=== PATIENT | male | born 1950 | race Caucasian/White ===

== ENCOUNTER → 2017-01-24 | Outpatient (CLI) | payer OTHER ==
[~2017-01-24] VITALS: Ht 177.8 cm; Wt 99.8 kg
[~2017-01-24] MED LIST: ASPIRIN; CIPR500T89 PO; COLA100C3 PO; EXCETAB80 PO; LIDOCAINE 2% INJ 100 MG/5 ML SDV (FOR ANES.) As Ordered ONE; NS 1,000 ML IV SCH; OMEP10CASR PO; PERC5TAB6 PO; PROPOFOL 200 MG/20 ML VIAL As Ordered ONE; TUMS750C20 PO; TYLE325T5 PO; aspirin OR; cinnamon OR
--- NOTE | 2017-01-24 09:52 | ROOR ---
Patient Name: Mehdi Silvestre Procedure Date: 01/24/2017 9:48 AM Date of : 1950 Age: 66 Gender: Male Note Status: Finalized Procedure: Colonoscopy Indications: Screening for colorectal malignant neoplasm Providers: Igro CARDOSO MD Referring MD: Courtney CARRASCO MD Requesting Provider: Medicines: Monitored Anesthesia Care Complications: No immediate complications. Procedure: Pre-Anesthesia Assessment: - The heart rate, respiratory rate, oxygen saturations, blood pressure, adequacy of pulmonary ventilation, and response to care were monitored throughout the procedure. The Colonoscope was introduced through the anus and advanced to the cecum, identified by appendiceal orifice and ileocecal valve. The colonoscopy was performed without difficulty. The patient tolerated the procedure well. The quality of the bowel preparation was good. Findings: The perianal and digital rectal examinations were normal. (Exam: Complete, Prep: Good or Excellent.) Multiple medium-mouthed diverticula were found in the sigmoid colon and descending colon. Small Internal Hemorrhoids. The exam was otherwise without abnormality on direct and retroflexion views. Impression: - (Exam: Complete, Prep: Good or Excellent.) - Moderate diverticulosis in the sigmoid colon and in the descending colon. - Small Internal Hemorrhoids. - The examination of the colon was otherwise normal on direct and retroflexion views. - No specimens collected. Recommendation: - Repeat colonoscopy in 10 years for screening purposes. Igor Cardoso MD Igor CARDOSO MD 01/24/2017 9:51:58 AM This report has been signed electronically. Number of Addenda: 0 Note Initiated On: 01/24/2017 9:48 AM Estimated Blood Loss: Estimated blood loss: none.
[2017-01-24 10:05] VITALS: BP 165/90
== END | disposition home or self-care (01) ==
LOC: M OPP 08:00
PROVIDERS: ATTEND Internal Medicine Gastroenterology
DX: Z12.11 Encounter for screening for malignant neoplasm of colon (principal); K57.30 Diverticulosis of large intestine without perforation or abscess without bleeding; K64.8 Other hemorrhoids; R12 Heartburn; M19.90 Unspecified osteoarthritis, unspecified site; L40.9 Psoriasis, unspecified; Z85.46 Personal history of malignant neoplasm of prostate; Z80.3 Family history of malignant neoplasm of breast; Z80.42 Family history of malignant neoplasm of prostate
CPT/HCPCS: 99156; G0121

== ENCOUNTER → 2017-02-06 | Outpatient (CLI) | payer OTHER ==
[~2017-02-06] MED LIST changes: -LIDOCAINE 2% INJ 100 MG/5 ML SDV (FOR ANES.) As Ordered ONE; -NS 1,000 ML IV SCH; -PROPOFOL 200 MG/20 ML VIAL As Ordered ONE
== END ==
LOC: M SMT 14:14
PROVIDERS: ATTEND Urology
DX: Z08 Encounter for follow-up examination after completed treatment for malignant neoplasm (principal); Z85.46 Personal history of malignant neoplasm of prostate

== ENCOUNTER → 2017-07-12 | Outpatient (REF) | payer OTHER ==
[~2017-07-12] MED LIST changes: +CIPR-249 PO; -CIPR500T89 PO; -COLA100C3 PO; +COLA100C5 PO; +PERC5TAB12 PO; -PERC5TAB6 PO
[2017-07-12 22:36] LABS: BANDS 3 % (< 11)
[2017-07-12 22:38] LABS: PLATELET CLUMPS SMALL AMT
== END ==
LOC: M LAB REF 11:57
PROVIDERS: ATTEND Nurse Practitioner Family
DX: R11.2 Nausea with vomiting, unspecified (principal); D72.829 Elevated white blood cell count, unspecified

== ENCOUNTER → 2018-03-22 | Outpatient (REF) | payer OTHER ==
[2018-03-22 17:22] LABS: BACTERIA, URINE AUTO NEGATIVE (NEGATIVE); MUCUS, URINE SMALL (NEGATIVE); RBC, URINE AUTO 12 /HPF (0-3); SQUAMOUS EPITHELIAL CELL UR AU 0 /HPF (0-6); WBC, URINE AUTO 5 /HPF (0-3)
[2018-03-22 17:25] LABS: LIPASE 68 U/L (73-393)
[2018-03-22 17:25] LABS: AMYLASE 26 U/L (25-115)
[2018-03-22 18:23] LABS: BANDS 3 % (< 11); EOSINOPHILS 5 % (0-5); LYMPHOCYTES 6 % (16-52); MONOCYTES 10 % (0-8); NEUTROPHILS 76 % (35-75); PLATELET ESTIMATE NORMAL (NORMAL)
[2018-03-22 18:26] LABS: TOXIC GRANULATION 1+
== END ==
LOC: M LAB REF 16:59
DX: D72.89 Other specified disorders of white blood cells (principal); R11.2 Nausea with vomiting, unspecified; R31.9 Hematuria, unspecified
CPT/HCPCS: 82150

== ENCOUNTER 2018-03-26 17:29 | Inpatient (IN) | payer OTHER ==
[2018-03-26] MEDS: NS 1,000 ML IV ×2 (18:04→22:37)
[2018-03-26 18:35] LABS: BASO % 0.3 % (0.0-1.0); EOS # 0.3 10^3/uL (0.0-0.50); HEMATOCRIT 39.5 % (42.0-52.0); HEMOGLOBIN 13.6 g/dl (13.5-17.5); IMMATURE GRANULOCYTE % 1.1 % (0-3.0); LYMPH # 0.8 10^3/uL (1.5-4.5); LYMPH % 5.3 % (24.0-44.0); MEAN CORPUSCULAR HEMOGLOBIN 32.1 pg (27.0-33.0); MEAN CORPUSCULAR HGB CONC 34.4 g/dl (32.0-36.5); MEAN CORPUSCULAR VOLUME 93.2 fl (80.0-96.0); MONO # 0.8 10^3/uL (0.0-0.8); MONO % 5.1 % (0.0-5.0); NEUTROPHILS # 13.6 10^3/uL (1.8-7.7); NEUTROPHILS % 86.2 % (36.0-66.0); PLATELET COUNT, AUTOMATED 372 10^3/uL (150-450); RED BLOOD COUNT 4.24 10^6/uL (4.30-6.10); RED CELL DISTRIBUTION WIDTH 12.6 % (11.5-14.5); WHITE BLOOD COUNT 15.7 10^3/uL (4.0-10.0)
[2018-03-26] MEDS: MORPHINE 4 MG/ML 1ML VIAL/SYRINGE (J2270) IV ×2 (18:36→20:36)
[2018-03-26 18:46] LABS: AMORPHOUS SEDIMENT RFX SMALL (NEGATIVE); KETONE, URINE AUTO RFX TRACE mg/dL (NEGATIVE); LEUKOCYTE ESTERASE UR AUTO RFX NEGATIVE (NEGATIVE); NITRITE, URINE AUTO RFX NEGATIVE (NEGATIVE); RBC, URINE AUTO RFX 3 /HPF (0-3); SQUAM EPITHELIAL CELL UR AURFX 0 /HPF (0-6); WBC, URINE AUTO RFX 3 /HPF (0-3)
[2018-03-26 18:49] LABS: SPECIFIC GRAVITY UR AUTO RFX >1.060 (1.002-1.035)
[2018-03-26 19:01] LABS: ALKALINE PHOSPHATASE 142 U/L (45-117); ALT/SGPT 43 U/L (12-78); ANION GAP 7 MEQ/L (8-16); AST/SGOT 29 U/L (7-37); BILIRUBIN,DIRECT 0.3 MG/DL (0.0-0.2); BILIRUBIN,TOTAL 0.7 MG/DL (0.2-1.0); BLOOD UREA NITROGEN 15 MG/DL (7-18); CALCIUM LEVEL 7.9 MG/DL (8.8-10.2); CARBON DIOXIDE LEVEL 30 MEQ/L (21-32); CHLORIDE LEVEL 99 MEQ/L (98-107); CREATININE FOR GFR 0.79 MG/DL (0.70-1.30); GLOMERULAR FILTRATION RATE > 60.0 (>49); GLUCOSE, FASTING 122 MG/DL (70-100); LIPASE 45 U/L (73-393); POTASSIUM SERUM 3.5 MEQ/L (3.5-5.1); SODIUM LEVEL 136 MEQ/L (136-145)
[2018-03-26] MEDS ORDERED: ONDANSETRON 4MG/2ML VIAL (J2405) IV (20:15)
[2018-03-26] MEDS ORDERED: MORPHINE 2 MG/ML 1ML SYRINGE (J2270) IV (20:15)
[2018-03-27 06:23] LABS: BASO # 0.1 10^3/uL (0.0-0.2); BASO % 0.3 % (0.0-1.0); EOS # 0.3 10^3/uL (0.0-0.50); HEMATOCRIT 38.7 % (42.0-52.0); HEMOGLOBIN 13.5 g/dl (13.5-17.5); IMMATURE GRANULOCYTE % 0.9 % (0-3.0); LYMPH # 0.8 10^3/uL (1.5-4.5); LYMPH % 4.5 % (24.0-44.0); MEAN CORPUSCULAR HEMOGLOBIN 32.2 pg (27.0-33.0); MEAN CORPUSCULAR HGB CONC 34.9 g/dl (32.0-36.5); MEAN CORPUSCULAR VOLUME 92.4 fl (80.0-96.0); MONO % 5.7 % (0.0-5.0); NEUTROPHILS # 14.6 10^3/uL (1.8-7.7); NEUTROPHILS % 86.6 % (36.0-66.0); PLATELET COUNT, AUTOMATED 366 10^3/uL (150-450); RED BLOOD COUNT 4.19 10^6/uL (4.30-6.10); RED CELL DISTRIBUTION WIDTH 12.6 % (11.5-14.5); WHITE BLOOD COUNT 16.9 10^3/uL (4.0-10.0)
[2018-03-27 06:33] LABS: INR 1.21; PROTHROMBIN TIME 15.5 SECONDS (12.4-14.5)
[2018-03-27 06:42] LABS: ALBUMIN 1.9 GM/DL (3.2-5.2); ALBUMIN/GLOBULIN RATIO 0.51 (1.00-1.93); ALKALINE PHOSPHATASE 131 U/L (45-117); ALT/SGPT 40 U/L (12-78); ANION GAP 8 MEQ/L (8-16); AST/SGOT 29 U/L (7-37); BILIRUBIN,TOTAL 1.1 MG/DL (0.2-1.0); BLOOD UREA NITROGEN 12 MG/DL (7-18); CALCIUM LEVEL 7.6 MG/DL (8.8-10.2); CARBON DIOXIDE LEVEL 27 MEQ/L (21-32); CHLORIDE LEVEL 101 MEQ/L (98-107); CREATININE FOR GFR 0.69 MG/DL (0.70-1.30); GLOMERULAR FILTRATION RATE > 60.0 (>49); GLUCOSE, FASTING 140 MG/DL (70-100); POTASSIUM SERUM 3.8 MEQ/L (3.5-5.1); SODIUM LEVEL 136 MEQ/L (136-145); TOTAL PROTEIN 5.6 GM/DL (6.4-8.2)
[2018-03-27] MEDS ORDERED: GABAPENTIN 300 MG CAP PO (07:15)
[2018-03-27] MEDS ORDERED: ENOXAPARIN 40 MG/0.4 ML SYRINGE (J1650) SC (09:00)
[2018-03-27] MEDS: NS 1,000 ML IV ×3 (09:36→22:19)
[2018-03-27] MEDS: MORPHINE 4 MG/ML 1ML VIAL/SYRINGE (J2270) IV (09:37)
[2018-03-27] MEDS: SENOKOT S TAB PO ×2 (12:45→21:00)
[2018-03-27] MEDS: MIRALAX *UNIT DOSE* 17GM PACKET PO (12:45)
[2018-03-27 14:50] LABS: ALBUMIN 2.17 GM/DL (3.29-5.55); ALBUMIN % 43.3 % (55.8-66.1); ALPHA-1-GLOBULIN % 11.8 % (2.9-4.9); ALPHA-1-GLOBULINS 0.59 GM/DL (0.17-0.41); ALPHA-2-GLOBULINS 0.79 GM/DL (0.42-0.99); ALPHA-2-GLOBULINS % 15.8 % (7.1-11.8); BETA-1-GLOBULINS 0.34 GM/DL (0.28-0.60); BETA-1-GLOBULINS % 6.8 % (4.7-7.2); BETA-2-GLOBULINS 0.39 GM/DL (0.19-0.55); BETA-2-GLOBULINS % 7.8 % (3.2-6.5); GAMMA GLOBULIN % 14.5 % (11.1-18.8); GAMMA GLOBULINS 0.73 GM/DL (0.65-1.58)
[2018-03-28] MEDS: NS 1,000 ML IV (04:39)
[2018-03-28 06:28] LABS: HEMOGLOBIN 13.1 g/dl (13.5-17.5); MEAN CORPUSCULAR HEMOGLOBIN 31.9 pg (27.0-33.0); MEAN CORPUSCULAR HGB CONC 34.5 g/dl (32.0-36.5); MEAN CORPUSCULAR VOLUME 92.5 fl (80.0-96.0); PLATELET COUNT, AUTOMATED 373 10^3/uL (150-450); RED BLOOD COUNT 4.11 10^6/uL (4.30-6.10); RED CELL DISTRIBUTION WIDTH 12.3 % (11.5-14.5); WHITE BLOOD COUNT 14.8 10^3/uL (4.0-10.0)
[2018-03-28 06:49] LABS: ALBUMIN 1.8 GM/DL (3.2-5.2); ALBUMIN/GLOBULIN RATIO 0.49 (1.00-1.93); ALKALINE PHOSPHATASE 122 U/L (45-117); ALT/SGPT 36 U/L (12-78); ANION GAP 8 MEQ/L (8-16); AST/SGOT 28 U/L (7-37); BILIRUBIN,TOTAL 0.9 MG/DL (0.2-1.0); BLOOD UREA NITROGEN 7 MG/DL (7-18); CALCIUM LEVEL 7.4 MG/DL (8.8-10.2); CARBON DIOXIDE LEVEL 26 MEQ/L (21-32); CHLORIDE LEVEL 105 MEQ/L (98-107); CREATININE FOR GFR 0.75 MG/DL (0.70-1.30); GLOMERULAR FILTRATION RATE > 60.0 (>49); GLUCOSE, FASTING 146 MG/DL (70-100); POTASSIUM SERUM 3.7 MEQ/L (3.5-5.1); SODIUM LEVEL 139 MEQ/L (136-145); TOTAL PROTEIN 5.5 GM/DL (6.4-8.2)
[2018-03-28] MEDS: SENOKOT S TAB PO (09:21)
[2018-03-28] MEDS: MIRALAX *UNIT DOSE* 17GM PACKET PO (09:21)
== END 2018-03-28 12:42 | disposition home or self-care (01) | DRG 440 ==
LOC: M ED 17:29 → M ED INP 20:14 → M MSPAV 22:18
DX: K85.20 Alcohol induced acute pancreatitis without necrosis or infection (principal); F10.10 Alcohol abuse, uncomplicated; Z85.46 Personal history of malignant neoplasm of prostate; Z79.899 Other long term (current) drug therapy; L40.9 Psoriasis, unspecified

== ENCOUNTER → 2018-04-03 | Outpatient (REF) | payer OTHER ==
[2018-04-03 13:07] LABS: AMYLASE 22 U/L (25-115)
[2018-04-03 13:07] LABS: LIPASE 63 U/L (73-393)
== END ==
LOC: M LAB REF 12:06
DX: K86.0 Alcohol-induced chronic pancreatitis (principal); F10.988 Alcohol use, unspecified with other alcohol-induced disorder
CPT/HCPCS: 82150

== ENCOUNTER 2018-04-08 13:59 | Inpatient (IN) | payer OTHER ==
[2018-04-08 13:25] LABS: BASO % 0.2 % (0.0-1.0); EOS % 0.3 % (0.0-3.0); HEMATOCRIT 38.2 % (42.0-52.0); HEMOGLOBIN 13.2 g/dl (13.5-17.5); IMMATURE GRANULOCYTE % 0.5 % (0-3.0); LYMPH # 0.6 10^3/uL (1.5-4.5); LYMPH % 5.2 % (24.0-44.0); MEAN CORPUSCULAR HEMOGLOBIN 31.4 pg (27.0-33.0); MEAN CORPUSCULAR HGB CONC 34.6 g/dl (32.0-36.5); MEAN CORPUSCULAR VOLUME 90.7 fl (80.0-96.0); MONO # 1.4 10^3/uL (0.0-0.8); MONO % 12.6 % (0.0-5.0); NEUTROPHILS # 8.9 10^3/uL (1.8-7.7); NEUTROPHILS % 81.2 % (36.0-66.0); PLATELET COUNT, AUTOMATED 401 10^3/uL (150-450); RED BLOOD COUNT 4.21 10^6/uL (4.30-6.10); RED CELL DISTRIBUTION WIDTH 12.3 % (11.5-14.5); WHITE BLOOD COUNT 10.9 10^3/uL (4.0-10.0)
[2018-04-08] MEDS: NS 1,000 ML IV ×3 (13:32→16:37)
[2018-04-08] MEDS: ACETAMINOPHEN 325 MG TAB PO (13:33)
[2018-04-08 13:43] LABS: LACTIC ACID SEPSIS PROTOCOL 1.6 MMOL/L (0.4-2.0)
[2018-04-08 13:43] LABS: ALBUMIN 2.1 GM/DL (3.2-5.2); ALBUMIN/GLOBULIN RATIO 0.49 (1.00-1.93); ALKALINE PHOSPHATASE 105 U/L (45-117); ALT/SGPT 58 U/L (12-78); AMYLASE 20 U/L (25-115); ANION GAP 9 MEQ/L (8-16); AST/SGOT 49 U/L (7-37); BILIRUBIN,DIRECT 0.4 MG/DL (0.0-0.2); BILIRUBIN,TOTAL 0.9 MG/DL (0.2-1.0); BLOOD UREA NITROGEN 13 MG/DL (7-18); CALCIUM LEVEL 8.3 MG/DL (8.8-10.2); CARBON DIOXIDE LEVEL 29 MEQ/L (21-32); CHLORIDE LEVEL 95 MEQ/L (98-107); GLOMERULAR FILTRATION RATE > 60.0 (>49); GLUCOSE, FASTING 140 MG/DL (70-100); LIPASE 66 U/L (73-393); POTASSIUM SERUM 4.3 MEQ/L (3.5-5.1); SODIUM LEVEL 133 MEQ/L (136-145); TOTAL PROTEIN 6.4 GM/DL (6.4-8.2)
[2018-04-08] MEDS ORDERED: ISOVUE-370 76% 100ML VIAL (Q9967) As Ordered (14:56)
[2018-04-08] MEDS ORDERED: GASTROGRAFIN SOLUTION 30ML (Q9963) As Ordered (14:57)
[2018-04-08] MEDS: GASTROGRAFIN SOLUTION 30ML PO ×2 (15:01→15:34)
[2018-04-08] MEDS: ONDANSETRON 4MG/2ML VIAL (J2405) IV ×2 (15:04→23:50)
[2018-04-08 15:06] LABS: KETONE, URINE AUTO RFX NEGATIVE (NEGATIVE); LEUKOCYTE ESTERASE UR AUTO RFX 1+ (NEGATIVE); MUCUS, URINE RFX SMALL (NEGATIVE); NITRITE, URINE AUTO RFX POSITIVE (NEGATIVE); RBC, URINE AUTO RFX 3 /HPF (0-3); SPECIFIC GRAVITY UR AUTO RFX 1.018 (1.002-1.035); SQUAM EPITHELIAL CELL UR AURFX 0 /HPF (0-6); WBC, URINE AUTO RFX 16 /HPF (0-3)
[2018-04-08] MEDS: MORPHINE 4 MG/ML 1ML VIAL/SYRINGE (J2270) IV ×2 (15:07→23:51)
[2018-04-08] MEDS: CIPROFLOXACIN 400 MG in APPROPRIATE DILUENT 1 EA IV (16:37)
[2018-04-08] MEDS: ACETAMINOPHEN TAB 650MG DOSE (2X325MG) PO (22:44)
[2018-04-08] MEDS: LR 1,000 ML IV (23:49)
[2018-04-08] MEDS: HEPARIN SOD (PORCINE) 5000 UNITS/ML VIAL SC (23:50)
[2018-04-08] MEDS: PANTOPRAZOLE 40MG INJ (PROTONIX) (C9113) IV (23:50)
[2018-04-09] MEDS: IMIPENEM/CILASTATIN 500 MG in D5W MINI-BAG PLUS 100 ML IV ×5 (00:12→20:55)
[2018-04-09 07:15] LABS: HEMATOCRIT 35.8 % (42.0-52.0); HEMOGLOBIN 12.2 g/dl (13.5-17.5); MEAN CORPUSCULAR HEMOGLOBIN 31.1 pg (27.0-33.0); MEAN CORPUSCULAR HGB CONC 34.1 g/dl (32.0-36.5); MEAN CORPUSCULAR VOLUME 91.3 fl (80.0-96.0); PLATELET COUNT, AUTOMATED 335 10^3/uL (150-450); RED BLOOD COUNT 3.92 10^6/uL (4.30-6.10); RED CELL DISTRIBUTION WIDTH 12.6 % (11.5-14.5); WHITE BLOOD COUNT 10.3 10^3/uL (4.0-10.0)
[2018-04-09 07:29] LABS: ADD MANUAL DIFFER YES; DIFF SLIDE NUMBER 85; POSITIVE MORPH POS FLAG
[2018-04-09 07:41] LABS: ALBUMIN 1.7 GM/DL (3.2-5.2); ALBUMIN/GLOBULIN RATIO 0.43 (1.00-1.93); ALKALINE PHOSPHATASE 94 U/L (45-117); ALT/SGPT 50 U/L (12-78); ANION GAP 8 MEQ/L (8-16); AST/SGOT 43 U/L (7-37); BILIRUBIN,TOTAL 1.1 MG/DL (0.2-1.0); BLOOD UREA NITROGEN 12 MG/DL (7-18); CALCIUM LEVEL 8.1 MG/DL (8.8-10.2); CARBON DIOXIDE LEVEL 26 MEQ/L (21-32); CHLORIDE LEVEL 99 MEQ/L (98-107); GLOMERULAR FILTRATION RATE > 60.0 (>49); GLUCOSE, FASTING 122 MG/DL (70-100); POTASSIUM SERUM 4.1 MEQ/L (3.5-5.1); SODIUM LEVEL 133 MEQ/L (136-145); TOTAL PROTEIN 5.7 GM/DL (6.4-8.2)
[2018-04-09 07:54] LABS: ATYPICAL LYMPH 1 % (0-5); BANDS 11 % (< 11); LYMPHOCYTES 8 % (16-52); MONOCYTES 3 % (0-8); NEUTROPHILS 77 % (35-75)
[2018-04-09 07:55] LABS: PLATELET ESTIMATE NORMAL (NORMAL)
[2018-04-09 08:01] LABS: ANISOCYTOSIS 1+
[2018-04-09] MEDS: HEPARIN SOD (PORCINE) 5000 UNITS/ML VIAL SC ×2 (09:59→20:55)
[2018-04-09] MEDS: LR 1,000 ML IV ×3 (10:03→20:54)
[2018-04-09] MEDS: MORPHINE 4 MG/ML 1ML VIAL/SYRINGE (J2270) IV (19:08)
[2018-04-09] MEDS: PANTOPRAZOLE 40MG INJ (PROTONIX) (C9113) IV (20:56)
[2018-04-09] MEDS: ONDANSETRON 4MG/2ML VIAL (J2405) IV (20:56)
[2018-04-10] MEDS: IMIPENEM/CILASTATIN 500 MG in D5W MINI-BAG PLUS 100 ML IV ×4 (02:18→20:55)
[2018-04-10] MEDS: ACETAMINOPHEN TAB 650MG DOSE (2X325MG) PO (05:18)
[2018-04-10] MEDS: LR 1,000 ML IV ×2 (07:45→17:49)
[2018-04-10] MEDS: HEPARIN SOD (PORCINE) 5000 UNITS/ML VIAL SC ×2 (11:00→20:55)
[2018-04-10] MEDS: MORPHINE 4 MG/ML 1ML VIAL/SYRINGE (J2270) IV ×2 (11:00→15:46)
[2018-04-10] MEDS ORDERED: LIDOCAINE 1% MDV 20ML VIAL As Ordered (14:16)
[2018-04-10] MEDS: FAT EMULSION IV 20% 500 ML IV (17:38)
[2018-04-10] MEDS: SODIUM CHLORIDE 0.9% INJ 10 ML SYR IV (17:38)
[2018-04-10] MEDS: AMINO AC/ELECTROLYTE/DEX/CALC 2,000 ML IV (17:38)
[2018-04-10] MEDS: PANTOPRAZOLE 40MG INJ (PROTONIX) (C9113) IV (20:56)
[2018-04-11] MEDS: IMIPENEM/CILASTATIN 500 MG in D5W MINI-BAG PLUS 100 ML IV ×4 (02:29→21:23)
[2018-04-11] MEDS: ACETAMINOPHEN TAB 650MG DOSE (2X325MG) PO ×2 (02:29→21:33)
[2018-04-11] MEDS: SODIUM CHLORIDE 0.9% INJ 10 ML SYR IV ×4 (05:33→18:18)
[2018-04-11] MEDS: HEPARIN SOD (PORCINE) 5000 UNITS/ML VIAL SC ×2 (09:09→21:23)
[2018-04-11 09:36] LABS: HEMOGLOBIN 12.4 g/dl (13.5-17.5); MEAN CORPUSCULAR HEMOGLOBIN 31.4 pg (27.0-33.0); MEAN CORPUSCULAR HGB CONC 34.4 g/dl (32.0-36.5); MEAN CORPUSCULAR VOLUME 91.1 fl (80.0-96.0); PLATELET COUNT, AUTOMATED 376 10^3/uL (150-450); RED BLOOD COUNT 3.95 10^6/uL (4.30-6.10); RED CELL DISTRIBUTION WIDTH 12.3 % (11.5-14.5); WHITE BLOOD COUNT 9.7 10^3/uL (4.0-10.0)
[2018-04-11 09:54] LABS: ALBUMIN 1.8 GM/DL (3.2-5.2); ALBUMIN/GLOBULIN RATIO 0.55 (1.00-1.93); ALKALINE PHOSPHATASE 94 U/L (45-117); ALT/SGPT 38 U/L (12-78); ANION GAP 10 MEQ/L (8-16); AST/SGOT 33 U/L (7-37); BILIRUBIN,TOTAL 0.4 MG/DL (0.2-1.0); BLOOD UREA NITROGEN 10 MG/DL (7-18); CALCIUM LEVEL 7.8 MG/DL (8.8-10.2); CARBON DIOXIDE LEVEL 30 MEQ/L (21-32); CHLORIDE LEVEL 97 MEQ/L (98-107); CREATININE FOR GFR 0.58 MG/DL (0.70-1.30); GLOMERULAR FILTRATION RATE > 60.0 (>49); GLUCOSE, FASTING 166 MG/DL (70-100); POTASSIUM SERUM 4.2 MEQ/L (3.5-5.1); SODIUM LEVEL 137 MEQ/L (136-145); TOTAL PROTEIN 5.1 GM/DL (6.4-8.2)
[2018-04-11] MEDS: MORPHINE 4 MG/ML 1ML VIAL/SYRINGE (J2270) IV ×2 (14:41→16:56)
[2018-04-11] MEDS: MULTIVITAMIN -ADULT INJECTION 10 ML, CR/CU/SE/MN/ZN INJ 1 ML in AMINO AC/ELECTROLYTE/DE... IV (18:18)
[2018-04-11] MEDS: FAT EMULSION IV 20% 500 ML IV (18:18)
[2018-04-11] MEDS: PANTOPRAZOLE 40MG INJ (PROTONIX) (C9113) IV (21:23)
[2018-04-12] MEDS: IMIPENEM/CILASTATIN 500 MG in D5W MINI-BAG PLUS 100 ML IV ×4 (03:11→21:33)
[2018-04-12] MEDS: SODIUM CHLORIDE 0.9% INJ 10 ML SYR IV ×5 (05:29→21:34)
[2018-04-12] MEDS: GASTROGRAFIN SOLUTION 30ML PO ×2 (06:57→07:35)
[2018-04-12] MEDS ORDERED: ISOVUE-370 76% 100ML VIAL (Q9967) As Ordered (08:27)
[2018-04-12] MEDS: HEPARIN SOD (PORCINE) 5000 UNITS/ML VIAL SC ×2 (08:58→21:33)
[2018-04-12 10:57] LABS: HEMATOCRIT 33.8 % (42.0-52.0); HEMOGLOBIN 12.1 g/dl (13.5-17.5); MEAN CORPUSCULAR HEMOGLOBIN 36.7 pg (27.0-33.0); MEAN CORPUSCULAR HGB CONC 35.8 g/dl (32.0-36.5); MEAN CORPUSCULAR VOLUME 102.4 fl (80.0-96.0); PLATELET COUNT, AUTOMATED 323 10^3/uL (150-450); RED CELL DISTRIBUTION WIDTH 13.2 % (11.5-14.5); WHITE BLOOD COUNT 9.6 10^3/uL (4.0-10.0)
[2018-04-12] MEDS: MORPHINE 4 MG/ML 1ML VIAL/SYRINGE (J2270) IV ×3 (11:04→18:31)
[2018-04-12 13:05] LABS: ALBUMIN/GLOBULIN RATIO 0.61 (1.00-1.93); ALKALINE PHOSPHATASE 105 U/L (45-117); ALT/SGPT 47 U/L (12-78); ANION GAP 8 MEQ/L (8-16); AST/SGOT 57 U/L (7-37); BILIRUBIN,TOTAL 0.4 MG/DL (0.2-1.0); BLOOD UREA NITROGEN 11 MG/DL (7-18); CALCIUM LEVEL 7.9 MG/DL (8.8-10.2); CARBON DIOXIDE LEVEL 29 MEQ/L (21-32); CHLORIDE LEVEL 99 MEQ/L (98-107); CREATININE FOR GFR 0.57 MG/DL (0.70-1.30); GLOMERULAR FILTRATION RATE > 60.0 (>49); GLUCOSE, FASTING 145 MG/DL (70-100); POTASSIUM SERUM 4.4 MEQ/L (3.5-5.1); SODIUM LEVEL 136 MEQ/L (136-145); TOTAL PROTEIN 5.3 GM/DL (6.4-8.2)
[2018-04-12] MEDS: AMINO AC/ELECTROLYTE/DEX/CALC 2,000 ML IV (18:01)
[2018-04-12] MEDS: FAT EMULSION IV 20% 500 ML IV (18:01)
[2018-04-12] MEDS: PANTOPRAZOLE 40MG INJ (PROTONIX) (C9113) IV (21:33)
[2018-04-12] MEDS: ACETAMINOPHEN TAB 650MG DOSE (2X325MG) PO (23:08)
[2018-04-13] MEDS: IMIPENEM/CILASTATIN 500 MG in D5W MINI-BAG PLUS 100 ML IV ×4 (03:26→20:34)
[2018-04-13] MEDS: SODIUM CHLORIDE 0.9% INJ 10 ML SYR IV ×3 (06:32→17:30)
[2018-04-13] MEDS: HEPARIN SOD (PORCINE) 5000 UNITS/ML VIAL SC ×2 (09:34→20:34)
[2018-04-13] MEDS: MORPHINE 4 MG/ML 1ML VIAL/SYRINGE (J2270) IV ×3 (13:08→20:44)
[2018-04-13] MEDS: FAT EMULSION IV 20% 500 ML IV (18:05)
[2018-04-13] MEDS: MULTIVITAMIN -ADULT INJECTION 10 ML, CR/CU/SE/MN/ZN INJ 1 ML in AMINO AC/ELECTROLYTE/DE... IV (18:05)
[2018-04-13] MEDS: PANTOPRAZOLE 40MG INJ (PROTONIX) (C9113) IV (20:34)
[2018-04-14] MEDS: IMIPENEM/CILASTATIN 500 MG in D5W MINI-BAG PLUS 100 ML IV ×4 (03:34→21:27)
[2018-04-14] MEDS: SODIUM CHLORIDE 0.9% INJ 10 ML SYR IV ×3 (05:11→21:28)
[2018-04-14 05:14] LABS: HEMATOCRIT 36.4 % (42.0-52.0); HEMOGLOBIN 12.4 g/dl (13.5-17.5); MEAN CORPUSCULAR HEMOGLOBIN 31.2 pg (27.0-33.0); MEAN CORPUSCULAR HGB CONC 34.1 g/dl (32.0-36.5); MEAN CORPUSCULAR VOLUME 91.5 fl (80.0-96.0); PLATELET COUNT, AUTOMATED 314 10^3/uL (150-450); RED BLOOD COUNT 3.98 10^6/uL (4.30-6.10); RED CELL DISTRIBUTION WIDTH 12.7 % (11.5-14.5); WHITE BLOOD COUNT 12.7 10^3/uL (4.0-10.0)
[2018-04-14 05:36] LABS: ANION GAP 8 MEQ/L (8-16); BLOOD UREA NITROGEN 12 MG/DL (7-18); CALCIUM LEVEL 7.6 MG/DL (8.8-10.2); CARBON DIOXIDE LEVEL 27 MEQ/L (21-32); CHLORIDE LEVEL 101 MEQ/L (98-107); CREATININE FOR GFR 0.57 MG/DL (0.70-1.30); GLOMERULAR FILTRATION RATE > 60.0 (>49); GLUCOSE, FASTING 173 MG/DL (70-100); POTASSIUM SERUM 4.5 MEQ/L (3.5-5.1); SODIUM LEVEL 136 MEQ/L (136-145)
[2018-04-14] MEDS: HEPARIN SOD (PORCINE) 5000 UNITS/ML VIAL SC ×2 (10:29→21:27)
[2018-04-14] MEDS: MORPHINE 4 MG/ML 1ML VIAL/SYRINGE (J2270) IV ×2 (10:29→17:11)
[2018-04-14] MEDS: AMINO AC/ELECTROLYTE/DEX/CALC 2,000 ML IV (18:45)
[2018-04-14] MEDS: FAT EMULSION IV 20% 500 ML IV (18:45)
[2018-04-14] MEDS: PANTOPRAZOLE 40MG INJ (PROTONIX) (C9113) IV (21:27)
[2018-04-15] MEDS: IMIPENEM/CILASTATIN 500 MG in D5W MINI-BAG PLUS 100 ML IV ×4 (03:16→21:03)
[2018-04-15] MEDS: MORPHINE 4 MG/ML 1ML VIAL/SYRINGE (J2270) IV ×7 (03:16→20:47)
[2018-04-15] MEDS: SODIUM CHLORIDE 0.9% INJ 10 ML SYR IV ×4 (03:17→20:47)
[2018-04-15 05:46] LABS: HEMOGLOBIN 12.4 g/dl (13.5-17.5); MEAN CORPUSCULAR HEMOGLOBIN 31.4 pg (27.0-33.0); MEAN CORPUSCULAR HGB CONC 34.4 g/dl (32.0-36.5); MEAN CORPUSCULAR VOLUME 91.1 fl (80.0-96.0); PLATELET COUNT, AUTOMATED 311 10^3/uL (150-450); RED BLOOD COUNT 3.95 10^6/uL (4.30-6.10); WHITE BLOOD COUNT 11.4 10^3/uL (4.0-10.0)
[2018-04-15 06:01] LABS: ANION GAP 8 MEQ/L (8-16); BLOOD UREA NITROGEN 12 MG/DL (7-18); CALCIUM LEVEL 7.8 MG/DL (8.8-10.2); CARBON DIOXIDE LEVEL 27 MEQ/L (21-32); CHLORIDE LEVEL 100 MEQ/L (98-107); CREATININE FOR GFR 0.55 MG/DL (0.70-1.30); GLOMERULAR FILTRATION RATE > 60.0 (>49); GLUCOSE, FASTING 221 MG/DL (70-100); POTASSIUM SERUM 4.2 MEQ/L (3.5-5.1); SODIUM LEVEL 135 MEQ/L (136-145)
[2018-04-15] MEDS: HEPARIN SOD (PORCINE) 5000 UNITS/ML VIAL SC ×2 (09:49→20:46)
[2018-04-15] MEDS: FAT EMULSION IV 20% 500 ML IV (17:41)
[2018-04-15] MEDS: AMINO AC/ELECTROLYTE/DEX/CALC 2,000 ML IV (17:41)
[2018-04-15] MEDS: PANTOPRAZOLE 40MG INJ (PROTONIX) (C9113) IV (20:46)
[2018-04-16] MEDS: MORPHINE 4 MG/ML 1ML VIAL/SYRINGE (J2270) IV ×6 (00:37→19:44)
[2018-04-16] MEDS: IMIPENEM/CILASTATIN 500 MG in D5W MINI-BAG PLUS 100 ML IV ×4 (03:00→20:04)
[2018-04-16] MEDS: SODIUM CHLORIDE 0.9% INJ 10 ML SYR IV ×2 (03:00→18:59)
[2018-04-16 05:58] LABS: HEMATOCRIT 34.9 % (42.0-52.0); HEMOGLOBIN 12.1 g/dl (13.5-17.5); MEAN CORPUSCULAR HEMOGLOBIN 31.4 pg (27.0-33.0); MEAN CORPUSCULAR HGB CONC 34.7 g/dl (32.0-36.5); MEAN CORPUSCULAR VOLUME 90.6 fl (80.0-96.0); PLATELET COUNT, AUTOMATED 295 10^3/uL (150-450); RED BLOOD COUNT 3.85 10^6/uL (4.30-6.10); RED CELL DISTRIBUTION WIDTH 12.9 % (11.5-14.5); WHITE BLOOD COUNT 11.1 10^3/uL (4.0-10.0)
[2018-04-16 06:11] LABS: ANION GAP 7 MEQ/L (8-16); BLOOD UREA NITROGEN 12 MG/DL (7-18); CALCIUM LEVEL 7.8 MG/DL (8.8-10.2); CARBON DIOXIDE LEVEL 29 MEQ/L (21-32); CHLORIDE LEVEL 97 MEQ/L (98-107); CREATININE FOR GFR 0.58 MG/DL (0.70-1.30); GLOMERULAR FILTRATION RATE > 60.0 (>49); GLUCOSE, FASTING 199 MG/DL (70-100); POTASSIUM SERUM 4.3 MEQ/L (3.5-5.1); SODIUM LEVEL 133 MEQ/L (136-145)
[2018-04-16] MEDS: GASTROGRAFIN SOLUTION 30ML PO ×2 (07:30→08:00)
[2018-04-16] MEDS ORDERED: ISOVUE-370 76% 100ML VIAL (Q9967) As Ordered (08:36)
[2018-04-16] MEDS: HEPARIN SOD (PORCINE) 5000 UNITS/ML VIAL SC ×2 (10:19→20:04)
[2018-04-16] MEDS: FAT EMULSION IV 20% 500 ML IV (19:00)
[2018-04-16] MEDS: AMINO AC/ELECTROLYTE/DEX/CALC 2,000 ML IV (19:00)
[2018-04-16] MEDS: PANTOPRAZOLE 40MG INJ (PROTONIX) (C9113) IV (20:04)
[2018-04-17] MEDS: MORPHINE 4 MG/ML 1ML VIAL/SYRINGE (J2270) IV ×7 (00:43→21:53)
[2018-04-17] MEDS: IMIPENEM/CILASTATIN 500 MG in D5W MINI-BAG PLUS 100 ML IV ×4 (03:07→20:20)
[2018-04-17] MEDS: SODIUM CHLORIDE 0.9% INJ 10 ML SYR IV ×2 (05:22→18:05)
[2018-04-17 06:16] LABS: HEMATOCRIT 35.1 % (42.0-52.0); MEAN CORPUSCULAR HEMOGLOBIN 31.3 pg (27.0-33.0); MEAN CORPUSCULAR HGB CONC 34.2 g/dl (32.0-36.5); MEAN CORPUSCULAR VOLUME 91.4 fl (80.0-96.0); PLATELET COUNT, AUTOMATED 279 10^3/uL (150-450); RED BLOOD COUNT 3.84 10^6/uL (4.30-6.10); RED CELL DISTRIBUTION WIDTH 12.9 % (11.5-14.5); WHITE BLOOD COUNT 10.1 10^3/uL (4.0-10.0)
[2018-04-17 06:34] LABS: ANION GAP 9 MEQ/L (8-16); BLOOD UREA NITROGEN 12 MG/DL (7-18); CALCIUM LEVEL 7.8 MG/DL (8.8-10.2); CARBON DIOXIDE LEVEL 29 MEQ/L (21-32); CHLORIDE LEVEL 99 MEQ/L (98-107); CREATININE FOR GFR 0.54 MG/DL (0.70-1.30); GLOMERULAR FILTRATION RATE > 60.0 (>49); GLUCOSE, FASTING 151 MG/DL (70-100); SODIUM LEVEL 137 MEQ/L (136-145)
[2018-04-17] MEDS: HEPARIN SOD (PORCINE) 5000 UNITS/ML VIAL SC ×2 (08:20→20:20)
[2018-04-17] MEDS: AMINO AC/ELECTROLYTE/DEX/CALC 2,000 ML IV (18:05)
[2018-04-17] MEDS: FAT EMULSION IV 20% 500 ML IV (18:05)
[2018-04-17] MEDS: PANTOPRAZOLE 40MG INJ (PROTONIX) (C9113) IV (20:20)
[2018-04-18] MEDS: MORPHINE 4 MG/ML 1ML VIAL/SYRINGE (J2270) IV ×6 (01:31→22:49)
[2018-04-18] MEDS: IMIPENEM/CILASTATIN 500 MG in D5W MINI-BAG PLUS 100 ML IV ×4 (03:55→20:21)
[2018-04-18] MEDS: SODIUM CHLORIDE 0.9% INJ 10 ML SYR IV ×4 (05:30→20:21)
[2018-04-18 06:04] LABS: HEMATOCRIT 34.3 % (42.0-52.0); HEMOGLOBIN 11.5 g/dl (13.5-17.5); MEAN CORPUSCULAR HEMOGLOBIN 30.5 pg (27.0-33.0); MEAN CORPUSCULAR HGB CONC 33.5 g/dl (32.0-36.5); PLATELET COUNT, AUTOMATED 266 10^3/uL (150-450); RED BLOOD COUNT 3.77 10^6/uL (4.30-6.10); RED CELL DISTRIBUTION WIDTH 12.8 % (11.5-14.5); WHITE BLOOD COUNT 10.1 10^3/uL (4.0-10.0)
[2018-04-18 06:20] LABS: ANION GAP 8 MEQ/L (8-16); BLOOD UREA NITROGEN 13 MG/DL (7-18); CARBON DIOXIDE LEVEL 29 MEQ/L (21-32); CHLORIDE LEVEL 99 MEQ/L (98-107); CREATININE FOR GFR 0.52 MG/DL (0.70-1.30); GLOMERULAR FILTRATION RATE > 60.0 (>49); GLUCOSE, FASTING 178 MG/DL (70-100); POTASSIUM SERUM 4.5 MEQ/L (3.5-5.1); SODIUM LEVEL 136 MEQ/L (136-145)
[2018-04-18] MEDS: HEPARIN SOD (PORCINE) 5000 UNITS/ML VIAL SC ×2 (09:51→20:21)
[2018-04-18] MEDS: MULTIVITAMIN -ADULT INJECTION 10 ML, CR/CU/SE/MN/ZN INJ 1 ML in AMINO AC/ELECTROLYTE/DE... IV (18:56)
[2018-04-18] MEDS: FAT EMULSION IV 20% 500 ML IV (18:56)
[2018-04-18] MEDS: PANTOPRAZOLE 40MG INJ (PROTONIX) (C9113) IV (20:20)
[2018-04-19] MEDS: IMIPENEM/CILASTATIN 500 MG in D5W MINI-BAG PLUS 100 ML IV ×4 (03:06→21:52)
[2018-04-19] MEDS: MORPHINE 4 MG/ML 1ML VIAL/SYRINGE (J2270) IV ×3 (05:38→21:51)
[2018-04-19] MEDS: SODIUM CHLORIDE 0.9% INJ 10 ML SYR IV ×2 (05:39→17:55)
[2018-04-19 05:57] LABS: HEMATOCRIT 34.2 % (42.0-52.0); HEMOGLOBIN 11.7 g/dl (13.5-17.5); MEAN CORPUSCULAR HEMOGLOBIN 31.4 pg (27.0-33.0); MEAN CORPUSCULAR HGB CONC 34.2 g/dl (32.0-36.5); MEAN CORPUSCULAR VOLUME 91.7 fl (80.0-96.0); PLATELET COUNT, AUTOMATED 264 10^3/uL (150-450); RED BLOOD COUNT 3.73 10^6/uL (4.30-6.10); RED CELL DISTRIBUTION WIDTH 12.9 % (11.5-14.5); WHITE BLOOD COUNT 10.3 10^3/uL (4.0-10.0)
[2018-04-19 06:15] LABS: ANION GAP 7 MEQ/L (8-16); BLOOD UREA NITROGEN 11 MG/DL (7-18); CALCIUM LEVEL 8.5 MG/DL (8.8-10.2); CARBON DIOXIDE LEVEL 29 MEQ/L (21-32); CHLORIDE LEVEL 98 MEQ/L (98-107); CREATININE FOR GFR 0.59 MG/DL (0.70-1.30); GLOMERULAR FILTRATION RATE > 60.0 (>49); GLUCOSE, FASTING 170 MG/DL (70-100); POTASSIUM SERUM 4.3 MEQ/L (3.5-5.1); SODIUM LEVEL 134 MEQ/L (136-145)
[2018-04-19] MEDS: HEPARIN SOD (PORCINE) 5000 UNITS/ML VIAL SC ×2 (09:20→21:51)
[2018-04-19] MEDS: PANTOPRAZOLE 40MG INJ (PROTONIX) (C9113) IV (21:50)
[2018-04-20] MEDS: MORPHINE 4 MG/ML 1ML VIAL/SYRINGE (J2270) IV (03:20)
[2018-04-20] MEDS: IMIPENEM/CILASTATIN 500 MG in D5W MINI-BAG PLUS 100 ML IV ×3 (03:20→15:00)
[2018-04-20] MEDS: SODIUM CHLORIDE 0.9% INJ 10 ML SYR IV (03:20)
[2018-04-20 05:50] LABS: HEMATOCRIT 34.4 % (42.0-52.0); HEMOGLOBIN 11.9 g/dl (13.5-17.5); MEAN CORPUSCULAR HEMOGLOBIN 31.4 pg (27.0-33.0); MEAN CORPUSCULAR HGB CONC 34.6 g/dl (32.0-36.5); MEAN CORPUSCULAR VOLUME 90.8 fl (80.0-96.0); PLATELET COUNT, AUTOMATED 265 10^3/uL (150-450); RED BLOOD COUNT 3.79 10^6/uL (4.30-6.10); WHITE BLOOD COUNT 11.1 10^3/uL (4.0-10.0)
[2018-04-20 06:05] LABS: ANION GAP 9 MEQ/L (8-16); BLOOD UREA NITROGEN 13 MG/DL (7-18); CALCIUM LEVEL 8.6 MG/DL (8.8-10.2); CARBON DIOXIDE LEVEL 28 MEQ/L (21-32); CHLORIDE LEVEL 97 MEQ/L (98-107); GLOMERULAR FILTRATION RATE > 60.0 (>49); GLUCOSE, FASTING 134 MG/DL (70-100); POTASSIUM SERUM 4.6 MEQ/L (3.5-5.1); SODIUM LEVEL 134 MEQ/L (136-145)
[2018-04-20] MEDS: HEPARIN SOD (PORCINE) 5000 UNITS/ML VIAL SC (09:00)
== END 2018-04-20 16:08 | disposition home or self-care (01) | DRG 440 ==
LOC: M ED 13:59 → M ED INP 19:58 → M MSPAV 22:55
PROC: 02HV33Z Insertion of Infusion Device into Superior Vena Cava, Percutaneous Approach (ICD-10-PCS; principal; 2018-04-10)
DX: K85.92 Acute pancreatitis with infected necrosis, unspecified (principal); Z85.46 Personal history of malignant neoplasm of prostate; L40.8 Other psoriasis; Z79.899 Other long term (current) drug therapy

== ENCOUNTER → 2018-05-16 | Outpatient (REF) | payer OTHER ==
[2018-05-17 13:34] LABS: FOLATE 4.6 NG/ML; VITAMIN B12 LEVEL 1518 PG/ML
[2018-05-17 13:35] LABS: FERRITIN 292 NG/ML (26-388); IRON (FE) 53 UG/DL (65-175); PERCENT SATURATION 31.2 % (19.7-50.0); TOTAL IRON BINDING CAPACITY 170 UG/DL (250-450)
== END ==
LOC: M LAB REF 12:36
DX: D64.9 Anemia, unspecified (principal)
CPT/HCPCS: 82746

== ENCOUNTER → 2018-06-27 | Outpatient (CLI) | payer OTHER ==
[~2018-06-27] MED LIST changes: -ASPIRIN; -CIPR-249 PO; -COLA100C5 PO; -EXCETAB80 PO; +GASTROGRAFIN SOLUTION 30ML (Q9963) As Ordered; +ISOVUE-370 76% 100ML VIAL (Q9967) As Ordered; -OMEP10CASR PO; -PERC5TAB12 PO; -TUMS750C20 PO; -TYLE325T5 PO; -aspirin OR; -cinnamon OR
== END ==
LOC: M RAD 08:56
DX: R10.11 Right upper quadrant pain (principal); K85.90 Acute pancreatitis without necrosis or infection, unspecified; K86.3 Pseudocyst of pancreas; K57.90 Diverticulosis of intestine, part unspecified, without perforation or abscess without bleeding
CPT/HCPCS: Q9963

== ENCOUNTER → 2018-09-05 | Outpatient (CLI) | payer OTHER ==
[2018-09-05 17:18] LABS: PROSTATIC SPECIFIC AG MONITOR < 0.0 NG/ML (< 4.0)
== END ==
LOC: M SMT 14:10
DX: Z85.46 Personal history of malignant neoplasm of prostate (principal)
CPT/HCPCS: 84153

== ENCOUNTER → 2018-10-08 | Outpatient (CLI) | payer OTHER ==
[~2018-10-08] MED LIST changes: +ASPIRIN; +AUGM500T34 PO; +Acetaminophen Tab PO; +CIPR-249 PO; +COLA100C5 PO; +EXCETAB80 PO; +EXCETAB81 PO; +GABA-843 PO; -GASTROGRAFIN SOLUTION 30ML (Q9963) As Ordered; +GASTROGRAFIN SOLUTION 30ML (Q9963) As Ordered ONE; -ISOVUE-370 76% 100ML VIAL (Q9967) As Ordered; +ISOVUE-370 76% 100ML VIAL (Q9967) As Ordered ONE; +NORC1TAB4 PO; +OMEP10CASR PO; +ONDA4TAB6 PO; +PERC5TAB12 PO; +SENN1TAB2 PO; +TUMS750C20 PO; +TYLE325T5 PO; +aspirin OR; +cinnamon OR
--- NOTE | 2018-10-12 10:39 | REP ---
Clinical: Pancreatitis. Technique: Axial contrast enhanced images from the lung bases to the pubic symphysis using oral (per protocol) and 100 ml Isovue 370 intravenous contrast material with precontrast and delayed images of the abdomen as well as coronal and sagittal re-formations. Comparison: 06/27/2018, 04/12/2018. Findings: Normal appearing residual pancreatic tissue includes head/uncinate process through mid body with mild surrounding mesenteric spiculations and small amount of residual low density changes significantly improved from prior examinations and likely representing chronic changes related to previous necrotizing pancreatitis. No significant adenopathy or drainable collection/abscess/pseudocyst. Liver, spleen, bilateral adrenal glands and kidneys are normal / stable 4.7 cm left renal peripelvic cyst is again noted and unchanged. Cholelithiasis identified without CT evidence for acute cholecystitis. The enteric system is without obstruction or acute inflammatory process. Normal terminal ileum and appendix identified in the right lower quadrant. Colonic and sigmoid diverticulosis noted without acute diverticulitis. Pelvis demonstrates normal bladder and evidence for prior prostatectomy. No ascites. No free air. No adenopathy. Abdominal aorta and vasculature without aneurysm or dissection. Musculoskeletal structures demonstrate age-related degenerative changes without focal osseous abnormality. Lung bases are stable with chronic noncalcified granuloma in the anterior right middle lobe unchanged compared to 2005. Impression: 1. Changes related to previous acute necrotizing pancreatitis significantly improved. No residual pseudocyst/abscess. 2. Stable left renal cyst. 3. Diverticulosis without acute diverticulitis. 4. No acute abdominopelvic pathology appreciated. Chronic changes as described above remains stable. Electronically Signed by Mike Merchant MD 10/12/2018 10:31 A
== END ==
LOC: M RAD 08:39
PROVIDERS: ATTEND Internal Medicine Gastroenterology
DX: N28.1 Cyst of kidney, acquired (principal); K85.90 Acute pancreatitis without necrosis or infection, unspecified; K86.3 Pseudocyst of pancreas; E55.9 Vitamin D deficiency, unspecified; K21.9 Gastro-esophageal reflux disease without esophagitis; D50.9 Iron deficiency anemia, unspecified
CPT/HCPCS: 74178; Q9963; Q9967

== ENCOUNTER 2018-12-06 08:07 | Emergency (ER) | payer MEDICARE, OTHER ==
[~2018-12-06] VITALS: Ht 177.8 cm; Wt 86.4 kg
[~2018-12-06 08:07] MED LIST changes: -GASTROGRAFIN SOLUTION 30ML (Q9963) As Ordered ONE; -ISOVUE-370 76% 100ML VIAL (Q9967) As Ordered ONE
[2018-12-06] MEDS ORDERED: PREVINJ2 (08:13)
[2018-12-06] MEDS ORDERED: OMEP20CA3 (08:13)
[2018-12-06] MEDS ORDERED: CREO12CA (08:13)
[2018-12-06] MEDS ORDERED: MORPHINE 4 MG/ML 1ML VIAL/SYRINGE (J2270) IV ONE ×2 (08:30→10:45)
[2018-12-06] MEDS ORDERED: ONDANSETRON 4MG/2ML VIAL (J2405) IV ONE (08:30)
[2018-12-06] MEDS ORDERED: NS 1,000 ML IV ONE (08:30)
[2018-12-06 08:52] LABS: BASO % 0.2 % (0.0-1.0); HEMATOCRIT 45.9 % (42.0-52.0); HEMOGLOBIN 16.2 g/dl (13.5-17.5); LYMPH # 0.4 10^3/uL (1.5-4.5); LYMPH % 3.5 % (24.0-44.0); MEAN CORPUSCULAR HGB CONC 35.3 g/dl (32.0-36.5); MEAN CORPUSCULAR VOLUME 90.5 fl (80.0-96.0); MONO # 0.5 10^3/uL (0.0-0.8); MONO % 3.8 % (0.0-5.0); NEUTROPHILS # 10.9 10^3/uL (1.8-7.7); NEUTROPHILS % 92.2 % (36.0-66.0); PLATELET COUNT, AUTOMATED 176 10^3/uL (150-450); RED BLOOD COUNT 5.07 10^6/uL (4.30-6.10); WHITE BLOOD COUNT 11.9 10^3/uL (4.0-10.0)
[2018-12-06 09:18] LABS: ALBUMIN 4.2 GM/DL (3.2-5.2); ALT/SGPT 29 U/L (12-78); AMYLASE 55 U/L (25-115); BILIRUBIN,DIRECT 0.3 MG/DL (0.0-0.2); BILIRUBIN,TOTAL 1.2 MG/DL (0.2-1.0); BLOOD UREA NITROGEN 19 MG/DL (7-18); CALCIUM LEVEL 9.4 MG/DL (8.8-10.2); CARBON DIOXIDE LEVEL 27 MEQ/L (21-32); CHLORIDE LEVEL 102 MEQ/L (98-107); CREATININE FOR GFR 0.87 MG/DL (0.70-1.30); GLOMERULAR FILTRATION RATE > 60.0 (>49); GLUCOSE, FASTING 178 MG/DL (70-100); LIPASE 31 U/L (73-393); POTASSIUM SERUM 4.1 MEQ/L (3.5-5.1); SODIUM LEVEL 136 MEQ/L (136-145); TOTAL PROTEIN 7.8 GM/DL (6.4-8.2)
[2018-12-06] MEDS ORDERED: ISOVUE-370 76% 100ML VIAL (Q9967) As Ordered ONE (09:47)
--- NOTE | 2018-12-06 09:59 | REP ---
RIGHT UPPER QUADRANT ULTRASOUND: Real-time sonographic evaluation of the right upper quadrant performed. On today's exam, the study is limited by bowel gas. No definite stones are seen in the gallbladder but on prior CT of 10/08/2018, there was a small amount of sludge or stones in the dependent gallbladder. There is mild gallbladder wall thickening. There is no intrahepatic or extrahepatic biliary dilatation, common bile duct measuring 5 mm. No free fluid is seen. The liver is heterogeneous in echotexture, with somewhat increased echotexture diffusely suggesting diffuse fibrofatty infiltration. No gross mass is seen. The pancreas could not be seen due to overlying bowel gas. The right kidney demonstrates no hydronephrosis with normal size 12 cm in length. IMPRESSION: Limited exam due to body habitus and bowel gas. No definite gallstones are seen, although on prior CT 10/08/2018, a small amount of stones and/or sludge seen in the gallbladder. There is mild gallbladder wall thickening with no free fluid or biliary dilatation. There is diffuse fibrofatty infiltration of the liver. Electronically Signed by Gume Hair MD 12/07/2018 10:14 A
--- NOTE | 2018-12-06 11:01 | REP ---
CT ABDOMEN AND PELVIS WITH IV CONTRAST: TECHNIQUE: Axial contrast enhanced images from the lung bases to the pubic symphysis using 100 mL Isovue 370 intravenous contrast material with multiplanar reformations. COMPARISON: 10/08/2018. The visualized lung bases demonstrate fibrotic change. The liver demonstrates diffuse fatty infiltration with a small cyst in the left lobe near the dome. The gallbladder demonstrates several small intraluminal calculi. There is diffuse wall thickening and there is mild surrounding edema compatible with cholecystitis. No biliary dilatation is seen. The spleen, adrenals, and right kidney are unremarkable. Left kidney again demonstrates a stable cyst in the parapelvic region. Chronic peripancreatic densities are stable consistent with old pancreatitis with no new findings involving the pancreas. There is atherosclerotic calcification of the abdominal aorta without aneurysm. There is no adenopathy. There is no free air or free fluid. No bowel wall thickening is seen. There is no evidence of appendicitis. No pelvic mass is seen. There is sigmoid diverticulosis which extends up the left colon with no acute diverticulitis. The urinary bladder is very mildly distended and not optimally evaluated. There are degenerative changes of the spine. There is a mild hiatal hernia. IMPRESSION: Small gallstones in the gallbladder with gallbladder wall thickening and surrounding edema compatible with cholecystitis. Stable findings of chronic pancreatitis. Other stable findings as discussed above with no other acute abnormalities. No free air or free fluid. Electronically Signed by Gume Hair MD 12/07/2018 10:15 A
[2018-12-06] MEDS ORDERED: cefTRIAXone SOD 1 GM in D5W MINI-BAG PLUS 50 ML IV ONE (13:45)
[2018-12-06] MEDS ORDERED: PERC5TAB12 PO (13:46)
[2018-12-06] MEDS ORDERED: AUGM875T28 PO (13:46)
[2018-12-06 14:47] VITALS: BP 118/68
== END 2018-12-06 14:49 | disposition home or self-care (01) ==
LOC: M ED 08:07
DX: K81.0 Acute cholecystitis (principal); K21.9 Gastro-esophageal reflux disease without esophagitis; G43.909 Migraine, unspecified, not intractable, without status migrainosus; F10.10 Alcohol abuse, uncomplicated; Z87.19 Personal history of other diseases of the digestive system; Z79.899 Other long term (current) drug therapy; J30.89 Other allergic rhinitis
CPT/HCPCS: 74177; 76705; 80048; 80076; 81001; 82150; 83690; 85025; 96361; 96365; 96375; 96376; 99284; J0696; J2270; J2405; Q9967

== ENCOUNTER → 2020-01-03 | Outpatient (REF) | payer OTHER ==
[~2020-01-03] MED LIST changes: +AUGM875T28 PO; +CREO12CA; -NORC1TAB4 PO; +NORC1TAB7 PO; +OMEP1CAP73; +PREVINJ2; +SENN-53 PO; -SENN1TAB2 PO
== END ==
LOC: M SFHCADAM 16:42
PROVIDERS: ATTEND Urology
DX: Z85.46 Personal history of malignant neoplasm of prostate (principal)

== ENCOUNTER → 2020-05-28 | Outpatient (REF) | payer MEDICARE ==
[2020-07-25 16:08] LABS: BLOOD UREA NITROGEN 23 MG/DL (7-18); CALCIUM LEVEL 9.3 MG/DL (8.8-10.2); CARBON DIOXIDE LEVEL 32 MEQ/L (21-32); CHLORIDE LEVEL 108 MEQ/L (98-107); CREATININE FOR GFR 0.96 MG/DL (0.70-1.30); GLOMERULAR FILTRATION RATE > 60.0 (>49); POTASSIUM SERUM 4.7 MEQ/L (3.5-5.1); SODIUM LEVEL 143 MEQ/L (136-145)
[2020-07-25 16:11] LABS: GLUCOSE, FASTING 92 MG/DL (70-100)
== END ==
LOC: M LABDRWAD 13:06
PROVIDERS: ATTEND Surgery
DX: Z87.19 Personal history of other diseases of the digestive system (principal)

== ENCOUNTER → 2020-09-07 | Outpatient (REF) | payer MEDICARE | LOC: M LAB REF 12:16 | PROVIDERS: ATTEND Internal Medicine | DX: K86.1 Other chronic pancreatitis (principal) ==

== ENCOUNTER → 2021-02-03 | Outpatient (REF) | payer MEDICARE ==
[~2021-02-03] MED LIST changes: +GABA-282 PO; -GABA-843 PO
[2021-02-03 13:14] LABS: APPEARANCE, URINE CLEAR (CLEAR); BACTERIA, URINE AUTO NEGATIVE (NEGATIVE); BILIRUBIN, URINE AUTO NEGATIVE (NEGATIVE); BLOOD, URINE BLOOD NEGATIVE (NEGATIVE); COLOR, URINE YELLOW (YELLOW); GLUCOSE, URINE (UA) AUTO NEGATIVE (NEGATIVE); KETONE, URINE AUTO NEGATIVE (NEGATIVE); LEUKOCYTE ESTERASE, URINE AUTO NEGATIVE (NEGATIVE); MUCUS, URINE LARGE (NEGATIVE); NITRITE, URINE AUTO NEGATIVE (NEGATIVE); PROTEIN, URINE AUTO 1+ mg/dL (NEGATIVE); RBC, URINE AUTO 0 /HPF (0-3); SQUAMOUS EPITHELIAL CELL UR AU 0 /HPF (0-6); UROBILINOGEN, URINE AUTO 0.2 mg/dL (0.0-2.0); WBC, URINE AUTO 1 /HPF (0-3)
== END ==
LOC: M SMT 09:52
PROVIDERS: ATTEND Urology
DX: R39.15 Urgency of urination (principal); R35.0 Frequency of micturition
CPT/HCPCS: 51798; 81001; 87086; G0463

== ENCOUNTER → 2021-09-06 | Outpatient (REF) | payer MEDICARE ==
[2021-09-06 14:09] LABS: HEPATITIS B SURFACE ANTIBODY NEGATIVE (POSITIVE); HIV 1&2 SCREEN CENTAUR NEGATIVE (NEGATIVE)
== END ==
LOC: M LAB REF 12:15
PROVIDERS: ATTEND Internal Medicine
DX: L40.0 Psoriasis vulgaris (principal); Z79.899 Other long term (current) drug therapy; Z51.81 Encounter for therapeutic drug level monitoring

== ENCOUNTER → 2021-12-01 | Outpatient (REF) | payer MEDICARE | LOC: M LAB REF 12:22 | PROVIDERS: ATTEND Internal Medicine | DX: Z79.899 Other long term (current) drug therapy (principal); Z51.81 Encounter for therapeutic drug level monitoring; L40.50 Arthropathic psoriasis, unspecified ==

== ENCOUNTER → 2021-12-01 | Outpatient (CLI) | payer MEDICARE | LOC: M PLAIMG 09:15 | PROVIDERS: ATTEND Nurse Practitioner Family | DX: L40.0 Psoriasis vulgaris (principal); Z51.81 Encounter for therapeutic drug level monitoring; Z79.899 Other long term (current) drug therapy ==

== ENCOUNTER → 2023-04-13 | Outpatient (REF) | payer MEDICARE ==
[2023-04-13 17:19] LABS: APPEARANCE, URINE HAZY (CLEAR); BACTERIA, URINE AUTO NEGATIVE (NEGATIVE); BILIRUBIN, URINE AUTO NEGATIVE (NEGATIVE); BLOOD, URINE BLOOD NEGATIVE (NEGATIVE); COLOR, URINE YELLOW (YELLOW); GLUCOSE, URINE (UA) AUTO 1+ mg/dL (NEGATIVE); INR 0.94; KETONE, URINE AUTO NEGATIVE (NEGATIVE); LEUKOCYTE ESTERASE, URINE AUTO NEGATIVE (NEGATIVE); NITRITE, URINE AUTO NEGATIVE (NEGATIVE); PROTEIN, URINE AUTO NEGATIVE (NEGATIVE); PROTHROMBIN TIME 12.8 SECONDS (12.5-14.5); RBC, URINE AUTO 0 /HPF (0-3); SPECIFIC GRAVITY URINE AUTO 1.023 (1.002-1.035); SQUAMOUS EPITHELIAL CELL UR AU 0 /HPF (0-6); WBC, URINE AUTO 0 /HPF (0-3)
[2023-04-13 17:20] LABS: PARTIAL THROMBOPLASTIN TIME 28.3 SECONDS (24.8-34.2)
[2023-04-13 17:58] LABS: PERCENT SATURATION 18.8 % (19.7-50.0)
== END ==
LOC: M LAB REF 16:17
PROVIDERS: ATTEND Internal Medicine
DX: Z01.818 Encounter for other preprocedural examination (principal); Z79.899 Other long term (current) drug therapy

== ENCOUNTER → 2023-12-27 | Outpatient (REF) | payer MEDICARE | LOC: M LAB REF 12:39 | PROVIDERS: ATTEND Internal Medicine | DX: E56.9 Vitamin deficiency, unspecified (principal) ==

== ENCOUNTER → 2024-01-24 | Outpatient (CLI) | payer MEDICARE ==
[2024-01-24 13:13] LABS: BASO % 0.4 % (0.0-1.0); EOS # 0.1 10^3/uL (0.0-0.5); EOS % 2.5 % (0.0-3.0); HEMOGLOBIN 14.2 g/dl (13.5-17.5); LYMPH # 0.8 10^3/uL (1.5-5.0); LYMPH % 13.5 % (24.0-44.0); MEAN CORPUSCULAR HEMOGLOBIN 30.7 pg (27.0-33.0); MEAN CORPUSCULAR VOLUME 93.1 fl (80.0-96.0); MONO # 0.6 10^3/uL (0.0-0.8); MONO % 11.4 % (2.0-8.0); NEUTROPHILS # 4.1 10^3/uL (1.5-8.5); PLATELET COUNT, AUTOMATED 249 10^3/uL (150-450); RED BLOOD COUNT 4.62 10^6/uL (4.30-6.10); WHITE BLOOD COUNT 5.6 10^3/uL (4.0-10.0)
[2024-01-24 13:44] LABS: ALBUMIN 3.5 G/DL (3.2-5.2); ALKALINE PHOSPHATASE 119 U/L (46-116); ALT/SGPT 26 U/L (7.0-40); AST/SGOT 16 U/L (<34); BILIRUBIN,DIRECT 0.3 MG/DL (<0.4); BLOOD UREA NITROGEN 21 MG/DL (9-23); CALCIUM LEVEL 9.1 MG/DL (8.3-10.6); CARBON DIOXIDE LEVEL 30 MMOL/L (20-31); CHLORIDE LEVEL 103 MMOL/L (98-107); CREATININE FOR GFR 0.96 MG/DL (0.70-1.30); GLOMERULAR FILTRATION RATE > 60.0 (>42); GLUCOSE, FASTING 221 MG/DL (74-106); PHOSPHORUS LEVEL 3.1 MG/DL (2.4-5.1); POTASSIUM SERUM 4.2 MMOL/L (3.5-5.1); SODIUM LEVEL 135 MMOL/L (136-145); TOTAL PROTEIN 6.6 G/DL (5.7-8.2)
[2024-01-24 13:51] LABS: HEPATITIS B SURFACE ANTIBODY NEGATIVE (POSITIVE)
[2024-01-24 14:15] LABS: HIV 1&2 SCREEN NEGATIVE (NEGATIVE)
[2024-01-24 14:23] LABS: HEPATITIS C VIRUS ABY INDEX < 0.02 INDEX (<0.8)
== END ==
LOC: M WUC 09:41
PROVIDERS: ATTEND Nurse Practitioner Family
DX: L40.0 Psoriasis vulgaris (principal)

== ENCOUNTER → 2025-02-18 | Outpatient (REF) | payer MEDICARE ==
[~2025-02-18] MED LIST changes: +GABA-1172 PO; -GABA-282 PO; +ONDA-282 PO; -ONDA4TAB6 PO
== END ==
LOC: M LAB REF 12:14
PROVIDERS: ATTEND Internal Medicine
DX: E56.9 Vitamin deficiency, unspecified (principal)